=== PATIENT | male | born 1975 | race Caucasian/White ===

== ENCOUNTER 2017-07-25 15:36 | Inpatient (IN) | payer SELFPAY ==
[~2017-07-25] VITALS: Ht 152.4 cm; Wt 81.6 kg
[~2017-07-25 15:36] MED LIST: IOHEXOL-300 100 ML BOTTLE ONE; SODIUM CHLORIDE 0.9% 10ML VIAL ONE
[2017-07-25] MEDS ORDERED: MORPHINE SULFATE 4 MG/ML CPJ (NOT FOR IM USE) IV STA (15:59)
[2017-07-25] MEDS ORDERED: SODIUM CHLORIDE 0.9% 1,000 ML IV ONE (15:59)
[2017-07-25] MEDS ORDERED: ONDANSETRON HCL 4MG/2ML VIAL IV STA (15:59)
[2017-07-25 16:26] LABS: HEMATOCRIT. 45.6 % (42.0-52.0); HEMOGLOBIN. 15.4 g/dL (14.0-18.0); MEAN CORPUSCULAR HEMOGLOBIN 30.8 pg (28.0-32.0); MEAN CORPUSCULAR VOLUME 91.1 fL (80.0-94.0); MEAN PLATELET VOLUME 7.9 fl (7.4-10.4); PLATELET 255 x1000/uL (130-400); RED CELL DISTRIBUTION WIDTH 13.1 % (11.6-14.6)
[2017-07-25 16:31] LABS: CHLORIDE 99 mEq/L (98-107)
[2017-07-25 16:35] LABS: CARBON DIOXIDE 28 mEq/L (21-32)
[2017-07-25 16:40] LABS: ETHANOL BLOOD < 10 mg/dL
[2017-07-25 16:41] LABS: PARTIAL THROMBOPLASTIN TIME 29.6 sec (23.4-31.0); PROTHROMBIN TIME 10.7 sec (9.4-11.6)
[2017-07-25 16:42] LABS: CREATINE KINASE 50 IU/L (39-308); TROPONIN I < 0.02 ng/mL (0.00-0.04)
[2017-07-25 16:43] LABS: CREATINE KINASE MB FRACTION 0.6 ng/mL (0.5-3.6)
[2017-07-25 17:18] LABS: PLATELET ESTIMATE NORMAL
[2017-07-25] MEDS ORDERED: PIPERACILLIN/TAZ 3.375G PREMIX 50 ML IV ONE (18:15)
[2017-07-25] MEDS ORDERED: SODIUM CHLORIDE 0.9% 1000ML BAG (SEPSIS BOLUS) IV ONE (18:15)
[2017-07-25] MEDS ORDERED: MORPHINE SULFATE 4 MG/ML CPJ (NOT FOR IM USE) IV ONE (18:15)
[2017-07-25] MEDS ORDERED: ONDANSETRON HCL 4MG/2ML VIAL IV ONE (18:15)
[2017-07-25 18:40] LABS: CLARITY URINE CLEAR (CLEAR); COLOR URINE DARK YELLOW (YELLOW); GLUCOSE URINE 2+ (NEGATIVE); KETONES URINE NEGATIVE (NEGATIVE); LEUKOCYTE ESTERASE URINE NEGATIVE (NEGATIVE); NITRITE URINE NEGATIVE (NEGATIVE); OCCULT BLOOD URINE NEGATIVE (NEGATIVE); PH URINE 6.5 (4.5-8.0); PROTEIN URINE TRACE (NEGATIVE); SPECIFIC GRAVITY URINE 1.047 (1.005-1.030)
[2017-07-25 19:18] LABS: *AMPHETAMINES SCREEN URINE PRESUMTIVE POSITIVE (NEGATIVE); *BARBITURATES SCREEN URINE NEGATIVE (NEGATIVE); *BENZODIAZEPINES SCREEN URINE NEGATIVE (NEGATIVE); *COCAINE SCREEN URINE NEGATIVE (NEGATIVE); CANNABINOID URINE SCREEN NEGATIVE (NEGATIVE); METHADONE URINE SCREEN NEGATIVE (NEGATIVE); OPIATES URINE SCREEN PRESUMTIVE POSITIVE (NEGATIVE); PHENCYCLIDINE URINE SCREEN NEGATIVE (NEGATIVE)
[2017-07-25 21:00] VITALS: BP 163/99
[2017-07-25 21:48] VITALS: BP 163/99
[2017-07-25] MEDS ORDERED: ONDANSETRON HCL 4MG/2ML VIAL IV PRN (22:30)
[2017-07-25] MEDS: PIPERACILLIN/TAZ 3.375G PREMIX 50 ML IV SCH (23:51)
[2017-07-25] MEDS: DEXT 5%/0.9% NACL 1,000 ML IV SCH (23:52)
[2017-07-25] MEDS: MORPHINE SULFATE 4 MG/ML CPJ (NOT FOR IM USE) IV PRN (23:58)
[2017-07-26] VITALS: BP 170/110
[2017-07-26 04:00] VITALS: BP 165/103
[2017-07-26] MEDS: CLONIDINE 0.2MG TABLET PO PRN (05:39)
[2017-07-26] MEDS: PIPERACILLIN/TAZ 3.375G PREMIX 50 ML IV SCH ×4 (05:39→23:48)
[2017-07-26 05:42] LABS: HEMATOCRIT. 44.7 % (42.0-52.0); HEMOGLOBIN. 15.1 g/dL (14.0-18.0); MEAN CORPUSCULAR VOLUME 91.7 fL (80.0-94.0); MEAN PLATELET VOLUME 7.9 fl (7.4-10.4); PLATELET 240 x1000/uL (130-400); RED BLOOD CELL COUNT 4.87 mill/uL (4.7-6.1); RED CELL DISTRIBUTION WIDTH 13.2 % (11.6-14.6)
[2017-07-26 07:50] LABS: CHLORIDE 101 mEq/L (98-107)
[2017-07-26 08:00] VITALS: BP 139/91
[2017-07-26 08:05] LABS: CARBON DIOXIDE 26 mEq/L (21-32)
[2017-07-26] MEDS: DEXT 5%/0.9% NACL 1,000 ML IV SCH (11:41)
[2017-07-26 12:00] VITALS: BP 143/98
[2017-07-26] MEDS: MORPHINE SULFATE 4 MG/ML CPJ (NOT FOR IM USE) IV PRN ×2 (12:09→21:27)
[2017-07-26 16:00] VITALS: BP 138/91
[2017-07-26 18:14] LABS: PLATELET ESTIMATE NORMAL
[2017-07-26 20:00] VITALS: BP 143/88
[2017-07-27] VITALS: BP 145/92
[2017-07-27] MEDS: DEXT 5%/0.9% NACL 1,000 ML IV SCH ×2 (00:20→13:37)
[2017-07-27 04:00] VITALS: BP 147/96
[2017-07-27] MEDS: PIPERACILLIN/TAZ 3.375G PREMIX 50 ML IV SCH ×3 (05:15→17:25)
[2017-07-27 08:00] VITALS: BP 148/100
[2017-07-27] MEDS: CLONIDINE 0.2MG TABLET PO PRN (08:27)
[2017-07-27 12:00] VITALS: BP 142/91
[2017-07-27 16:00] VITALS: BP 147/88
[2017-07-27 20:00] VITALS: BP 147/92
[2017-07-27] MEDS ORDERED: ACETAMINOPHEN 325MG TABLET PO PRN (22:00)
[2017-07-27] MEDS ORDERED: ZOLPIDEM TARTRATE 5MG TABLET PO PRN (22:00)
[2017-07-28] VITALS: BP 148/90
[2017-07-28] MEDS: PIPERACILLIN/TAZ 3.375G PREMIX 50 ML IV SCH ×2 (00:18→05:46)
[2017-07-28 04:00] VITALS: BP 141/87
[2017-07-28] MEDS: DEXT 5%/0.9% NACL 1,000 ML IV SCH (04:40)
[2017-07-28 05:04] LABS: CARBON DIOXIDE 28 mEq/L (21-32); CHLORIDE 102 mEq/L (98-107)
[2017-07-28 06:18] LABS: BASOPHILS % 0.2 % (0.0-2.0); EOSINOPHILS % 2.7 % (0.0-5.0); HEMATOCRIT. 39.6 % (42.0-52.0); HEMOGLOBIN. 13.5 g/dL (14.0-18.0); LYMPHOCYTES % 9.4 % (20.0-50.0); MEAN CORPUSCULAR HEMOGLOBIN 31.1 pg (28.0-32.0); MEAN CORPUSCULAR VOLUME 91.4 fL (80.0-94.0); MONOCYTES % 11.6 % (2.0-8.0); NEUTROPHILS % 76.1 % (40.0-76.0); PLATELET 312 x1000/uL (130-400); RED BLOOD CELL COUNT 4.33 mill/uL (4.7-6.1); RED CELL DISTRIBUTION WIDTH 12.9 % (11.6-14.6)
[2017-07-28 08:00] VITALS: BP 145/97
== END 2017-07-28 10:44 | disposition left against medical advice (07) | DRG 282 ==
LOC: ER 16:07 → 6EST 18:14 → ENRESERV 19:43
PROVIDERS: ADMIT Hospitalist; ATTEND Hospitalist
DX: S36.209A Unspecified injury of unspecified part of pancreas, initial encounter (principal); K85.10 Biliary acute pancreatitis without necrosis or infection; K74.60 Unspecified cirrhosis of liver; F15.10 Other stimulant abuse, uncomplicated; K80.00 Calculus of gallbladder with acute cholecystitis without obstruction; I10 Essential (primary) hypertension; K80.20 Calculus of gallbladder without cholecystitis without obstruction; W13.2XXA Fall from, out of or through roof, initial encounter; Y93.H3 Activity, building and construction; Y92.69 Other specified industrial and construction area as the place of occurrence of the external cause; Y99.0 Civilian activity done for income or pay; R74.0 Nonspecific elevation of levels of transaminase and lactic acid dehydrogenase [LDH]
CPT/HCPCS: 36415; 71010; 74177; 76705; 80053; 80305; 81001; 82550; 82553; 83605; 83690; 84484; 85025; 85610; 85730; 87040; 87086; 93005; 96361; 96365; 96375; 96376; 99291; A4216; G0482; J2270; J2405; J2543; J7030; J7042; Q9967

== ENCOUNTER 2018-08-25 17:02 | Emergency (ER) | payer SELFPAY | END 2018-08-25 18:54 | disposition left against medical advice (07) | LOC: ER 18:53 | DX: Z53.21 Procedure and treatment not carried out due to patient leaving prior to being seen by health care provider (principal) ==